=== PATIENT | female | born 1950 | race Two or more races ===

== ENCOUNTER 2020-10-27 19:42 | Emergency (ER) | payer OTHER ==
[2020-10-27 20:06] VITALS: TEMP 98.2; BMI 29.2
[2020-10-27] MEDS ORDERED: CLINDAMYCIN 600MG PREMIX IVPB 600 MG/50 ML BAG IVPB ONE ×2 (21:23→21:28)
[2020-10-27] MEDS ORDERED: ACETAMINOPHEN 1000 MG/100 ML VIAL (NON FORMULARY) IVPB ONE (21:24)
[2020-10-27] MEDS ORDERED: ACETAMINOPHEN INJECTION 100 ML IVPB ONE (21:28)
[2020-10-27 22:16] LABS: BASO % 0.8 % (0-2.0); EOS % 0.1 % (0-4.5); HEMATOCRIT 39.3 % (32.4-45.2); HEMOGLOBIN 12.9 GM/dL (10.7-15.3); LYMPH % 13.2 % (8-40); MCH 27.2 pg (25.7-33.7); MCHC 32.8 g/dl (32.0-36.0); MEAN CELL VOLUME 82.9 fl (80-96); MEAN PLT VOLUME 7.5 fl (7.5-11.1); NEUT % 84.9 % (42.8-82.8); PLATELET COUNT 311 10^3/uL (134-434); RBC 4.74 M/mm3 (3.60-5.2); WHITE BLOOD COUNT 6.8 K/mm3 (4.0-10.0)
[2020-10-27 22:37] LABS: CALCIUM 7.4 mg/dL (8.5-10.1)
[2020-10-27 22:38] LABS: ALBUMIN 2.8 g/dl (3.4-5.0); BLOOD UREA NITROGEN 9.2 mg/dL (7-18)
[2020-10-27 22:40] LABS: CREATININE 0.8 mg/dL (0.55-1.3)
[2020-10-27 22:42] LABS: BILIRUBIN,TOTAL 0.2 mg/dL (0.2-1)
[2020-10-27 22:43] LABS: TOT PROT 6.2 g/dl (6.4-8.2)
[2020-10-27] MEDS ORDERED: SODIUM CHLORIDE 1,000 ML IV STA (22:55)
[2020-10-28 00:48] VITALS: BP 145/86; PULSE 89
== END 2020-10-28 00:50 | disposition home or self-care (01) ==
LOC: JER 19:42
PROC: 3E0333Z Introduction of Anti-inflammatory into Peripheral Vein, Percutaneous Approach (ICD-10-PCS; principal; 2020-10-27)
PROC: 3E03329 Introduction of Other Anti-infective into Peripheral Vein, Percutaneous Approach (ICD-10-PCS; 2020-10-27)
DX: L03.113 Cellulitis of right upper limb (principal)
CPT/HCPCS: 36415; 76882-TC-RT-FY; 80053; 85025; 99285-25; C9803; J0131; U0003; U0005